=== PATIENT | female | born 1975 | race Caucasian/White ===

== ENCOUNTER 2017-02-25 12:22 | Emergency (ER) | payer OTHER ==
[~2017-02-25] VITALS: Ht 157.5 cm; Wt 63.6 kg
[2017-02-25 12:28] VITALS: BP 182/119; PULSE 73; RESP 14; O2SAT 100
--- NOTE | 2017-02-25 12:40 | ED.REPORT ---
HPI-General Illness Date of Service Feb 25, 2017 ED Provider: Holden Lisa MD Patient is a 41 year old female with a hx of HTN who presents to the ED with multiple medical complaints. She had a high blood pressure for about 24 hours with headache and chest pressure. Her chest pressure waxes and wanes since starting yesterday morning at 0700 while walking around [place] with her family. Her discomfort radiates to her shoulders bilaterally. She denies nausea , SOB, back pain, jaw pain, extremity swelling, or any other symptoms. She does not have a hx of DVT, cancer, DM, or hormone therapy. She had a similar event that was less severe a few years ago for which she saw a water quality technician for. She had a positive troponin at that time. She takes 50mg of metoprolol 2x a day and 50 mg losartan 2x a day. Nursing Notes Stated Complaint: HIGH BP,HEADACHE,CHEST DISCOMFORT Chief Complaint: General Complaint Nursing Notes Reviewed: Yes Allergies: Coded Allergies: No Known Allergies (Unverified , 02/25/17) General Time Seen by MD: 12:39 Chief Complaint Multip medical complaints Hx Obtained From: Patient, Spouse Arrived By: Walk-in Sudden in Onset?: Yes Onset Occurred: Yesterday Symptom Duration: Since onset Similar Sx Previous: Yes Past Medical History Past Medical History Reports: Hypertension, Denies: Diabetes mellitus Past Surgical History None reported Smoking History Current Some Day Smoker Social History Other Social History: Good social support, Ambulatory Status Independent Review of Systems +hypertensive -jaw pain Full Review of Systems Respiratory: Denies: Shortness of breath Cardiovascular: Reports: Chest pain GI: Denies: Nausea Musculoskeletal: Reports: Joint pain, Denies: Back pain, Extremity swelling Neurologic: Reports: Headache Complete sys rev & neg: except as marked. Physical Exam Vital Signs Vital Signs Date Time Temp Pulse Resp B/P Pulse Ox O2 Delivery O2 Flow Rate FiO2 02/25/17 14:38 69 19 141/74 99 02/25/17 14:00 69 9 154/99 98 02/25/17 13:15 69 15 121/74 96 Room Air 02/25/17 12:57 75 18 147/95 94 Room Air 02/25/17 12:28 36.9 73 14 182/119 100 Room Air Head / Eyes: Atraumatic, Normocephalic Neck: Full range of motion Extremities: No swelling Skin: Warm, Dry Neurologic: Alert, Oriented, Nonfocal Psychiatric: Mood/affect normal, Behavior normal, Normal thought content General/Constitutional: Awake, Alert, Well appearing, Well developed Respiratory / Chest: Breath sounds NL, Breath sounds = bilat, No respiratory distress, No chest tenderness Cardiovascular: Heart rate NL, Regular rhythm Interpretation & Diagnostics Lab Results Interpretation Result Diagram: 02/25/17 1250 02/25/17 1250 Test 02/25/17 12:50 White Blood Count 5.0th/mm3 (3.8-10.1) Red Blood Count 4.11mil/mm3 (3.90-5.20) Hemoglobin 12.7g/dL (12.0-15.6) Hematocrit 38.7% (35.0-46.0) Mean Corpuscular Volume 94.2fL (81-100) Mean Corpuscular Hemoglobin 30.9pg (27.0-35.0) Mean Corpuscular Hemoglobin Concent 32.8% (32.0-37.0) Red Cell Distribution Width 13.5% (12.3-15.4) Platelet Count 229bil/L (150-400) Neutrophils (%) (Auto) 51.7% (40-74) Lymphocytes (%) (Auto) 31.3% (14-46) Monocytes (%) (Auto) 7.5% (4-12) Eosinophils (%) (Auto) 8.3% (0-5) Basophils (%) (Auto) 0.6% (0-3) Sodium Level 140mEq/L (134-144) Potassium Level 3.7mEq/L (3.5-5.2) Chloride Level 100mEq/L (97-108) Carbon Dioxide Level 22mmol/L (18-29) Blood Urea Nitrogen 11mg/dL (6-24) Creatinine 0.72mg/dL (0.57-1.00) Estimat Glomerular Filtration Rate 127mL/min (>59) Glucose Level 112mg/dL (60-99) Calcium Level 9.1mg/dL (8.5-10.1) Magnesium Level 2.0mg/dL (1.6-2.6) Total Bilirubin 0.4mg/dL (0.0-1.2) Aspartate Amino Transf (AST/SGOT) 62U/L (0-50) Alanine Aminotransferase (ALT/SGPT) 59U/L (0-32) Alkaline Phosphatase 90U/L (25-150) Troponin T < 0.010ug/L (0.0-0.011) Total Protein 7.8g/dL (6.4-8.4) Albumin 4.5g/dL (3.4-5.0) ECG Interpretation ECG Interpretation: Sinus rate [address] changes Time: 13:00 Interpreted by: ED physician X-Ray Chest Interpretation Chest Xray Interpretation: IMPRESSION: Normal chest Dictated by: Skyler Chaves M.D. on 02/25/2017 at 13:08 Approved by: Skyler Chaves M.D. on 02/25/2017 at 13:09 View: Portable, 1 view Interpretation / Wet Read by: Interpret - Radiologist Re-Eval/Medical Decision Med Decision/Clinical Course Given the presence of symptoms for over 24 hours in the face of a negative troponin, PERC rule negative, negative chest x-ray negative EKG I believe that outpatient follow-up is appropriate. I am concerned that her severely elevated blood pressure, which is normalized with simply 2 sublingual O glycerin and time may be related to the symptoms that she is feeling. I instructed her to use additional metoprolol if needed and follow-up the emergency department if symptoms are not resolved with these additional treatments if the chest pain becomes more severe later on. Time of Eval: 14:04 Re-Evaluation/Progress Note: Rechecked patient. She is feeling much better. Discussed plan for discharge. Patient understands and agrees with plan. All questions addressed at this time. Counseled Regarding: Diagnosis, Lab results, Need for follow-up, When/why to return to ED Discharge & Departure Primary Impression: Chest pain Chest pain type: unspecified Qualified Code: R07.9 - Chest pain, unspecified Disposition: Home Discharge Condition All VS Reviewed: Yes Condition: Improved Patient Instructions: Chest Pain (ED) Additional Instructions: No dangerous cause for the chest pain was discovered today. Specifically, no evidence of myocardial ischemia/heart attack or pulmonary embolism or any other immediately dangerous cause. I believe that your suspicion of blood pressure related symptoms is plausible. I recommended one extra metoprolol tablet as needed for severe high blood pressure such as greater than or equal to 190/105 associated with symptoms that you attribute to the elevated blood pressure. Follow up with your primary care provider in the coming days for further evaluation and treatment as needed. If the blood pressure remains severely elevated despite additional metoprolol and you have symptoms such as chest discomfort and headache, I recommend that you return to the emergency department. Referrals: Garry Carreon MD (PCP) Scribe Attestation Portions of this note were transcribed by Jeronimo Solo. I, Dr. Lisa personally performed the history, physical exam and medical decision-making; I reviewed and confirmed the accuracy of the information in the transcribed note. Signed by: Harriet Gerber, 02/25/17 at 1440. copies to: Garry Carreon MD Risk Factors )( CAD Risk Stratification Hypertension SmokingNo Diabetes mellitus, No Hyperlipidemia, No Known CAD Risk factors reviewed )( TAD Risk Stratification HypertensionNo 1st degree relative, No Aortic valve disease, No Coarctation of aorta Risk factors reviewed )( PE Risk Stratification No Previous DVT, No Previous PE, No Surgery Last 60 Days Risk factors reviewed HEART Score HEART for MACE: Low index of susp (0), Normal ECG (0), Age under 45 (0), 1-2 CAD risk factors (1), < or = to NL troponin (0) HEART for MACE Score: 0-3 (low risk 0.9%-1.7%) PERC Rule PERC Result: All PERC criteria "No" Well's Criteria for PE Well's PE Score: 0-2 pts (low risk 3.6%) Holden Lisa MD Feb 25, 2017 12:40 JERONIMO SOLO Feb 25, 2017 13:01
[2017-02-25 12:57] VITALS: BP 147/95; PULSE 75; RESP 18; O2SAT 94
[2017-02-25] MEDS ORDERED: Labetalol 5 mg/mL 4 mL Inj IVPUSH ONE (13:05)
[2017-02-25 13:06] LABS: BASOPHILS % (AUTO) 0.6 % (0-3); EOSINOPHILS % (AUTO) 8.3 % (0-5); MONOCYTES % (AUTO) 7.5 % (4-12); Mean Corpuscular Hemoglobin 30.9 pg (27.0-35.0); Mean Corpuscular Volume 94.2 fL (81-100); NEUTROPHILS % (AUTO) 51.7 % (40-74); Platelet Count 229 bil/L (150-400)
--- NOTE | 2017-02-25 13:11 | DRSVH ---
PROCEDURE: X-RAY CHEST ONE VIEW, PORTABLE ([id number]) INDICATIONS: cp TECHNIQUE: One view of the chest was acquired. COMPARISON: 07/18/2013 FINDINGS: Surgical changes and devices: None. Lungs and pleura: No pleural effusions or pneumothorax. Lungs are clear. Mediastinum: Mediastinal contours appear normal. Heart size is normal. Bones and chest wall: No suspicious bony lesions. Overlying soft tissues appear unremarkable. IMPRESSION: Normal chest Dictated by: Skyler Chaves M.D. on 02/25/2017 at 13:08 Approved by: Skyler Chaves M.D. on 02/25/2017 at 13:09
[2017-02-25 13:15] VITALS: BP 121/74; PULSE 69; RESP 15; O2SAT 96
[2017-02-25 13:40] LABS: TROPONIN T < 0.010 ug/L (0.0-0.011)
[2017-02-25 14:00] VITALS: BP 154/99; PULSE 69; RESP 9; O2SAT 98
[2017-02-25 14:38] VITALS: BP 141/74; PULSE 69; RESP 19; O2SAT 99
[2017-02-25 14:48] VITALS: BP 141/74; PULSE 69; RESP 19; O2SAT 99
== END 2017-02-25 14:30 | disposition home or self-care (01) ==
LOC: SED 12:22
DX: R07.89 Other chest pain (principal); I10 Essential (primary) hypertension; R51 Headache; F17.200 Nicotine dependence, unspecified, uncomplicated